=== PATIENT | female | born 1995 | race Caucasian/White ===

== ENCOUNTER 2018-02-04 10:31 | Emergency (ER) | payer OTHER ==
[2018-02-04] MEDS: IBUPROFEN 600 MG TAB PO (12:14)
== END 2018-02-04 13:28 | disposition home or self-care (01) ==
LOC: FTE 10:31
DX: S49.92XA Unspecified injury of left shoulder and upper arm, initial encounter (principal); J45.909 Unspecified asthma, uncomplicated; V49.49XA Driver injured in collision with other motor vehicles in traffic accident, initial encounter
CPT/HCPCS: 73030; 73080-LT; 99283-25